=== PATIENT | female | born 2000 | race Caucasian/White ===

== ENCOUNTER 2023-09-26 20:51 | Outpatient (CLI) | payer OTHER, SELFPAY | END 2023-09-26 20:52 | disposition home or self-care (01) | LOC: AMB 10-02 02:07 | PROVIDERS: Visit Provider Family Medicine | DX: R45.851 Suicidal ideations (principal) | CPT/HCPCS: A0425; A0429 ==

== ENCOUNTER 2023-09-26 21:08 | Emergency (ER) | payer OTHER, SELFPAY ==
[2023-09-26 21:16] VITALS: BP 133/71; PULSE 69; RESP 18; TEMP 36.6; O2SAT 99; BMI 25.8
--- NOTE | 2023-09-26 21:56 | ED_ITS ---
HPI - General Adult General Chief complaint: Psychiatric Problem/Disorder <Chelsey Schneider MD - Last Filed: 09/27/23 23:51> Stated complaint: Mental Health <Chelsey Schneider MD - Last Filed: 09/27/23 23:51> Time Seen by Provider: 09/26/23 21:20 <Chelsey Schneider MD - Last Filed: 09/27/23 23:51> Source: patient <Chelsey Schneider MD - Last Filed: 09/27/23 23:51> Mode of arrival: ambulatory <Chelsey Schneider MD - Last Filed: 09/27/23 23:51> Limitations: no limitations <Chelsey Schneider MD - Last Filed: 09/27/23 23:51> History of Present Illness HPI narrative: 22-year-old female presents emergency department for evaluation of anxiety and ?feeling unsafe?. She reports that she has lot of increased stress due to upcoming senior thesis project at [employer]. She states that she had her practice run of her lecture which was Proctored by 1 of her professors. She reports that she was given some feedback. It sounds like the feedback was fairly constructive and appropriate but it caused the patient to have increased anxiety when she had already been struggling considerably. She reports that she went back to her room, started feeling unwell and made some superficial cuts on the inside of her left wrist which is a 1st time for her. She states that she called a good friend because she was feeling unsafe and the friend brought her here to the emergency department. She reports that she has been struggling with depression and anxiety since early middle school. She started seeking help for it her sophomore year of high school. She reports that she was seeing a therapist for several years and was treated with fluoxetine for 4 years. She transitioned to Lexapro 3 years ago and has been prescribed a medication ever since. She has a Nexplanon for contraception for the last 3 years. She states that she has been feeling very busy, overwhelmed and has not taken her Lexapro for at least the last 4 days and admits to sporadic use in the days preceding that as well. She reports that because of the increased anxiety, she made an appointment with 1 of the therapists at school, it did not feel like the visit was very constructive, this was about 2 weeks ago. Has not made a new counseling appointment since. Has not been involving counseling in the last year plus. Her previous counselor moved out of state. She reports that she uses marijuana probably once a month but just in social settings. Drinks 2-3 alcoholic beverages each weekend but only in social settings. No regular illicit drug use. No recent relationship, financial or family changes that are contributing to her anxiety. Reports that both of her parents take SSRI medications and have been supportive. When asked about future plans, she reports that she will be graduating in January, does not yet have a plan for a career or grad school, is hoping to work in her designated field for a couple of years and then go to grad school. She is studying physics. She denies any fevers, recent illness or trauma. No prior hospitalizations for her moods, no prior suicide attempts. Has a good [place] of friends. Requesting a note to extend timeline for her Senior thesis. Past medical history notable for depression anxiety, home meds are spironolactone and Lexapro. Social history as above. ROS notable for increased anxiety as stated above, otherwise denies physical complaints times 12 systems. Does not get her menses due to the Nexplanon, but denies . <Chelsey Schneider MD - Last Filed: 09/27/23 23:51> Related Data Home medications: Home Medications Medication Instructions Recorded Confirmed escitalopram oxalate .ROUTE 09/26/23 spironolactone .ROUTE 09/26/23 <Chelsey Schneider MD - Last Filed: 09/27/23 23:51> Allergies/adverse reactions: Allergies Allergy/AdvReac Type Severity Reaction Status Date / Time pine nut Allergy Unknown Verified 09/26/23 21:21 <Chelsey Schneider MD - Last Filed: 09/27/23 23:51> [facility] Medical History: Medical History Anxiety ?F41.9 - Anxiety disorder, unspecified (ICD-10) Depression ?F32.A - Depression, unspecified (ICD-10) <Chelsey Schneider MD - Last Filed: 09/27/23 23:51> Social History: Social History Smoking Status: Never smoker Do you use any of these nicotine containing products: None How often do you have a drink containing alcohol: never AUDIT-C Alcohol total score: 0 Non-prescribed substance use: denies use <Chelsey Schneider MD - Last Filed: 09/27/23 23:51> Exam Const: Vital Signs, click to edit/add: Vital Signs - 24 hr 09/27/23 00:43 09/27/23 03:45 Temperature 97.7 F Pulse Rate [Pulse Oximeter] 64 68 Respiratory Rate 16 16 Blood Pressure [Ri ght Upper Arm] 106/69 108/68 Pulse Oximetry 99 99 Oxygen Delivery Me thod Room Air <Chelsey Schneider MD - Last Filed: 09/27/23 23:51> Vital Signs, click to edit/add: Vital Signs - 24 hr 09/27/23 00:43 09/27/23 03:45 Temperature 97.7 F Pulse Rate [Pulse Oximeter] 64 68 Respiratory Rate 16 16 Blood Pressure [Ri ght Upper Arm] 106/69 108/68 Pulse Oximetry 99 99 Oxygen Delivery Me thod Room Air <Thelma Gonzalez MD - Last Filed: 09/27/23 04:31> Documenting provider has reviewed patient's vital signs: yes <Chelsey Schneider MD - Last Filed: 09/27/23 23:51> Common normals: no apparent distress and alert <Chelsey Schneider MD - Last Filed: 09/27/23 23:51> General appearance: cooperative, comfortable and well kempt <Chelsey Schneider MD - Last Filed: 09/27/23 23:51> Orientation/consciousness: Yes awake <Chelsey Schneider MD - Last Filed: 09/27/23 23:51> HENMT: Common normals: normocephalic and head/scalp atraumatic <Chelsey Schneider MD - Last Filed: 09/27/23 23:51> Head and scalp: normocephalic and atraumatic <Chelsey Schneider MD - Last Filed: 09/27/23 23:51> Mouth: oral and palatal mucosa normal <MD Elvis Ortega Last Filed: 09/27/23 23:51> Throat: posterior oropharynx normal <MD Elvis Ortega Last Filed: 09/27/23 23:51> Eye: Common normals: conjunctivae normal <MD Elvis Ortega Last Filed: 09/27/23 23:51> General eye: normal appearance of both eyes <MD Elvis Ortega Last Filed: 09/27/23 23:51> Conjunctiva: conjunctiva(e) normal <MD Elvis Ortega Last Filed: 09/27/23 23:51> Neck & C-Spine: Common normals: full ROM, no lymphadenopathy, no meningeal signs and thyroid normal <MD Elvis Ortega Last Filed: 09/27/23 23:51> Thyroid: thyroid normal <MD Elvis Ortega Last Filed: 09/27/23 23:51> Resp: Common normals: normal respiratory effort, no use of accessory muscles and clear to auscultation bilaterally <MD Elvis Ortega Last Filed: 09/27/23 23:51> Effort & inspection: able to speak in complete sentences <MD Elvis Ortega Last Filed: 09/27/23 23:51> Auscultation: clear to auscultation bilaterally <MD Elvis Ortega Last Filed: 09/27/23 23:51> Cardio: Common normals: regular rate, regular rhythm, S1 normal heart sound, S2 normal heart sound and no murmurs <MD Elvis Ortega Last Filed: 09/27/23 23:51> Rate: regular rate <MD Elvis Ortega Last Filed: 09/27/23 23:51> Rhythm: regular rhythm <MD Elvis Ortega Last Filed: 09/27/23 23:51> Heart sounds: S1 normal and S2 normal <MD Elvis Ortega Last Filed: 09/27/23 23:51> GI: Common normals: Normal to inspection, nondistended, normoactive bowel sounds present, soft to palpation, non-tender, no hepatosplenomegaly and no masses <Chelsey Schneider MD - Last Filed: 09/27/23 23:51> Palpation: soft and no hepatosplenomegaly <Chelsey Schneider MD - Last Filed: 09/27/23 23:51> Extremity: Common normals: normal to inspection, normal capillary refill and no pedal edema <Chelsey Schneider MD - Last Filed: 09/27/23 23:51> Neuro: Sensorium/orientation: awake and alert <Chelsey Schneider MD - Last Filed: 09/27/23 23:51> Meningeal signs: no meningeal signs <Chelsey Schneider MD - Last Filed: 09/27/23 23:51> Speech: speech normal <Chelsey Schneider MD - Last Filed: 09/27/23 23:51> Motor exam: strength 5/5 throughout, no tremor noted and no movement abnormalities noted <Chelsey Schneider MD - Last Filed: 09/27/23 23:51> Psych: Appearance: well kempt <Chelsey Schneider MD - Last Filed: 09/27/23 23:51> Attitude: engaged <Chelsey Schneider MD - Last Filed: 09/27/23 23:51> Activity/motor behavior: appropriate eye contact <Chelsey Schneider MD - Last Filed: 09/27/23 23:51> Insight: insight good <Chelsey Schneider MD - Last Filed: 09/27/23 23:51> Judgement: judgment good <Chelsey Schneider MD - Last Filed: 09/27/23 23:51> Other: Mildly anxious but insight reasoning and judgment are great. Thought process logical, well organized. Normal grooming and hygiene. <Chelsey Schneider MD - Last Filed: 09/27/23 23:51> Skin: Narrative: Very superficial vertical cuts of less than 1 cm on center of dorsal left wrist, normal tendon function and movement. <Chelsey Schneider MD - Last Filed: 09/27/23 23:51> Course Course ED Course: Underlying depression and anxiety with recent epidemic stressors. Recommended mental health assessment, basic labs to look for metabolic etiology. Will go ahead and give her Lexapro as she has missed several days of doses and also 25 mg of Vistaril. Counseled patient that sometimes it can take a few hours to get the telehealth therapy visit but this should be helpful in guiding our management. Patient was understanding and agreeable. <Chelsey Schneider MD - Last Filed: 09/27/23 23:51> Reevaluation(s) Time of Reevaluation #1: 01:43 <Chelsey Schneider MD - Last Filed: 09/27/23 23:51> Reevaluation #1: Still waiting on telehealth assessment. Inform patient of normal labs. I will be handing over care to my in coming partner. <Chelsey Schneider MD - Last Filed: 09/27/23 23:51> Vital Signs Vital signs: Initial Vital Signs Temperature 97.9 F 09/26/23 21:16 Temperature Source Temporal Artery Scan 09/26/23 21:16 Pulse Rate 69 09/26/23 21:16 Respiratory Rate 18 09/26/23 21:16 Blood Pressure 133/71 09/26/23 21:16 Blood Pressure Mean 91 09/26/23 21:16 Blood Pressure Position Supine 09/26/23 21:16 Pulse Oximetry 99 09/26/23 21:16 Oxygen Delivery Method Room Air 09/26/23 21:16 Vital Signs Temperature 97.9 F 09/26/23 21:16 Pulse Rate 69 09/26/23 21:16 Respiratory Rate 18 09/26/23 21:16 Blood Pressure 133/71 09/26/23 21:16 Pulse Oximetry 99 09/26/23 21:16 Oxygen Delivery Method Room Air 09/26/23 21:16 Temperature 97.7 F 09/27/23 03:45 Pulse Rate 68 09/27/23 03:45 Respiratory Rate 16 09/27/23 03:45 Blood Pressure 108/68 09/27/23 03:45 Pulse Oximetry 99 09/27/23 03:45 Oxygen Delivery Method Room Air 09/27/23 03:45 <Chelsey Schneider MD - Last Filed: 09/27/23 23:51> Initial Vital Signs Temperature 97.9 F 09/26/23 21:16 Temperature Source Temporal Artery Scan 09/26/23 21:16 Pulse Rate 69 09/26/23 21:16 Respiratory Rate 18 09/26/23 21:16 Blood Pressure 133/71 09/26/23 21:16 Blood Pressure Mean 91 09/26/23 21:16 Blood Pressure Position Supine 09/26/23 21:16 Pulse Oximetry 99 09/26/23 21:16 Oxygen Delivery Method Room Air 09/26/23 21:16 Vital Signs Temperature 97.9 F 09/26/23 21:16 Pulse Rate 69 09/26/23 21:16 Respiratory Rate 18 09/26/23 21:16 Blood Pressure 133/71 09/26/23 21:16 Pulse Oximetry 99 09/26/23 21:16 Oxygen Delivery Method Room Air 09/26/23 21:16 Temperature 97.7 F 09/27/23 03:45 Pulse Rate 68 09/27/23 03:45 Respiratory Rate 16 09/27/23 03:45 Blood Pressure 108/68 09/27/23 03:45 Pulse Oximetry 99 09/27/23 03:45 Oxygen Delivery Method Room Air 09/27/23 03:45 <Thelma Gonzalez MD - Last Filed: 09/27/23 04:31> Medications Administered Medications: Discontinued Medications Generic Name Dose Route Start Last Admin Trade Name Freq PRN Reason Stop Dose Admin Escitalopram Oxalate 10 mg 09/26/23 21:55 09/26/23 22:21 Escitalopram 10 Mg Tablet PO 09/26/23 21:56 10 mg ONCE ONE Administration Hydroxyzine Pamoate 25 mg 09/26/23 21:54 09/26/23 22:21 Hydroxyzine Pamoate 25 Mg Capsule PO 09/26/23 21:55 25 mg ONCE ONE Administration Hydroxyzine Pamoate 25 mg 09/27/23 04:09 09/27/23 04:25 Hydroxyzine Pamoate 25 Mg Capsule PO 09/27/23 04:10 Not Given ONCE ONE <Chelsey Schneider MD - Last Filed: 09/27/23 23:51> Discontinued Medications Generic Name Dose Route Start Last Admin Trade Name Freq PRN Reason Stop Dose Admin Escitalopram Oxalate 10 mg 09/26/23 21:55 09/26/23 22:21 Escitalopram 10 Mg Tablet PO 09/26/23 21:56 10 mg ONCE ONE Administration Hydroxyzine Pamoate 25 mg 09/26/23 21:54 09/26/23 22:21 Hydroxyzine Pamoate 25 Mg Capsule PO 09/26/23 21:55 25 mg ONCE ONE Administration Hydroxyzine Pamoate 25 mg 09/27/23 04:09 09/27/23 04:25 Hydroxyzine Pamoate 25 Mg Capsule PO 09/27/23 04:10 Not Given ONCE ONE <Thelma Gonzalez MD - Last Filed: 09/27/23 04:31> Medical Decision Making MDM Narrative Medical decision making narrative: This patient was signed out to me by Dr. Schneider. Be has continued to rest comfortably during her night here. DEC was delayed but has now been completed. I did speak with an the counselor. At this time and feels be is safe to go home. Does recommend both joining the senior year stressed management group at [facility] as well as has made an appointment for patient to see a therapist this TuesdaySeptember 30. Assessment/plan 1. Depression/anxiety-at this time be will be discharged home after having seen our tele mental health. Recommend a shins as above for both 1 on 1 therapy as well as a group setting. I spoke with be about this at a encourage both. She notes that she has no problem with the ability to see the counselor on Tuesday but she is worried about a group situation. I have encouraged her to follow through upon this as this may be beneficial to understand that many of the high level achieving student at [employer] face many of the same challenges in stressors. I am hopeful that she will attend. In addition she did seem to have improvement and was able to sleep a period of time with hydroxyzine 25 mg ordered by my predecessor. I will send 1 tablet home with be to use as needed for sleep. Further prescriptions will need to go through primary MD. 2. Disposition-home at this time. Home is [facility] [place]. She feels safe and comfortable going back. There is a safety plan that is a pending at that we will have her sign. All questions were answered. Patient did wonder about a note so that she can take a few days off from school. At this time I encouraged her to actually speak with her clinical project coordinator and work with her counselor in order to set an appropriate schedule up. I do not think that here in the emergency room we are in a position where days off from school or extensions of her school project are something that we should be involved in. Instead, I have provided a note for be describing her visit overnight from September 26 into the and need for discussion regarding work life balance. She may give this to the Chris or her therapist so that they can come up with a plan that would fit be is needs for school as well as self-care. Return to the emergency room for worsening symptoms. <Thelma Gonzalez MD - Last Filed: 09/27/23 04:31> Medical Records Medical records reviewed: Yes I reviewed the patient's medical records <Thelma Gonzalez MD - Last Filed: 09/27/23 04:31> Lab Data Lab results reviewed: Yes I reviewed the patient's lab results <Chelsey Schneider MD - Last Filed: 09/27/23 23:51> Lab results narrative: Labs reassuring, as expected <Chelsey Schneider MD - Last Filed: 09/27/23 23:51> Labs: Lab Results 09/26/23 09/26/23 Range/Units 22:00 22:18 WBC 9.14 (4.50-11.00) K/uL RBC 4.38 (4.00-5.20) m/uL Hgb 12.5 (12.0-16.0) gm/dL Hct 38.7 (33.0-51.0) % MCV 88 (80-100) fL MCH 29 (26-34) pg MCHC 32 (32-36) gm/dL RDW Coeff of Bella 13.0 (11.5-15.5) % Plt Count 319 (140-440) K/uL Neut % (Auto) 74.6 H (42.0-72.0) % Lymph % (Auto) 17.9 L (20-44) % [place] % (Auto) 5.7 (0.0-11.0) % Eos % (Auto) 0.7 (0.0-7.0) % Baso % (Auto) 0.2 (0.0-3.0) % Neut # (Auto) 6.80 (1.7-7.0) K/uL Lymph # (Auto) 1.60 (0.90-2.90) K/uL [place] # (Auto) 0.50 (0.00-0.90) K/UL Eos # (Auto) 0.06 (0.00-0.50) K/uL Baso # (Auto) 0.02 (0.00-0.30) K/uL Abs Immat Gran (auto) 0.08 (0.00-0.30) K/uL Imm/Tot Granulo (auto) 0.9 % Sodium 142 (135-149) mmol/L Potassium 3.4 L (3.6-5.1) mmol/L Chloride 107 (96-114) mmol/L Carbon Dioxide 24 (20-32) mmol/L Anion Gap 11 (7-15) mEq/L BUN 13 (5-24) mg/dL Creatinine 0.6 (0.5-1.5) mg/dL Estimated Creat Clear 106.54 Estimated GFR 131 ml/min Glucose 119 H (60-115) mg/dL Calcium 9.6 (8.4-10.6) mg/dL TSH 1.070 (0.270-4.200) uIU/mL HCG, Quant < 2.39 mIU/mL Salicylates < 1.0 L (1.0-10) mg/dL Urine Opiates Screen Negative (Negative) Ur Oxycodone Screen Negative (Negative) Urine Methadone Screen Negative (Negative) Acetaminophen < 10.0 L (10.0-30.0) ug/mL Ur Barbiturates Screen Negative (Negative) U Tricyclic Antidepress Negative (Negative) Ur Phencyclidine Scrn Negative (Negative) Ur Amphetamines Screen Negative (Negative) U Methamphetamines Scrn Negative (Negative) U Benzodiazepines Scrn Negative (Negative) Urine Cocaine Screen Negative (Negative) U Marijuana (THC) Screen Negative (Negative) Ur Drug Screen Comment See Note Ethyl Alcohol < 0.01 L (0.01-0.03) % <Chelsey Schneider MD - Last Filed: 09/27/23 23:51> Lab Results 09/26/23 09/26/23 Range/Units 22:00 22:18 WBC 9.14 (4.50-11.00) K/uL RBC 4.38 (4.00-5.20) m/uL Hgb 12.5 (12.0-16.0) gm/dL Hct 38.7 (33.0-51.0) % MCV 88 (80-100) fL MCH 29 (26-34) pg MCHC 32 (32-36) gm/dL RDW Coeff of Bella 13.0 (11.5-15.5) % Plt Count 319 (140-440) K/uL Neut % (Auto) 74.6 H (42.0-72.0) % Lymph % (Auto) 17.9 L (20-44) % [place] % (Auto) 5.7 (0.0-11.0) % Eos % (Auto) 0.7 (0.0-7.0) % Baso % (Auto) 0.2 (0.0-3.0) % Neut # (Auto) 6.80 (1.7-7.0) K/uL Lymph # (Auto) 1.60 (0.90-2.90) K/uL [place] # (Auto) 0.50 (0.00-0.90) K/UL Eos # (Auto) 0.06 (0.00-0.50) K/uL Baso # (Auto) 0.02 (0.00-0.30) K/uL Abs Immat Gran (auto) 0.08 (0.00-0.30) K/uL Imm/Tot Granulo (auto) 0.9 % Sodium 142 (135-149) mmol/L Potassium 3.4 L (3.6-5.1) mmol/L Chloride 107 (96-114) mmol/L Carbon Dioxide 24 (20-32) mmol/L Anion Gap 11 (7-15) mEq/L BUN 13 (5-24) mg/dL Creatinine 0.6 (0.5-1.5) mg/dL Estimated Creat Clear 106.54 Estimated GFR 131 ml/min Glucose 119 H (60-115) mg/dL Calcium 9.6 (8.4-10.6) mg/dL TSH 1.070 (0.270-4.200) uIU/mL HCG, Quant < 2.39 mIU/mL Salicylates < 1.0 L (1.0-10) mg/dL Urine Opiates Screen Negative (Negative) Ur Oxycodone Screen Negative (Negative) Urine Methadone Screen Negative (Negative) Acetaminophen < 10.0 L (10.0-30.0) ug/mL Ur Barbiturates Screen Negative (Negative) U Tricyclic Antidepress Negative (Negative) Ur Phencyclidine Scrn Negative (Negative) Ur Amphetamines Screen Negative (Negative) U Methamphetamines Scrn Negative (Negative) U Benzodiazepines Scrn Negative (Negative) Urine Cocaine Screen Negative (Negative) U Marijuana (THC) Screen Negative (Negative) Ur Drug Screen Comment See Note Ethyl Alcohol < 0.01 L (0.01-0.03) % <Thelma Gonzalez MD - Last Filed: 09/27/23 04:31> Discharge Plan Discharge Clinical Impression: Acute anxiety Depression Qualifiers: Depression Type: unspecified Qualified Code(s): F32.A - Depression, unspecified <Chelsye Schneider MD - Last Filed: 09/27/23 23:51> Patient Disposition: Home, Self-Care <Chelsey Schneider MD - Last Filed: 09/27/23 23:51> Condition: Improved <Chelsey Schneider MD - Last Filed: 09/27/23 23:51> Additional Instructions: 1. The mental health hyperbaric welder diver has suggested a therapy appointment this Tuesday with a counselor. In addition [facility] offers a senior year stress management group that is highly recommended for you. 2. Please read and follow the safety plan and should you be worried about self- harm or suicidal thoughts please return to the emergency room. 3. An additional dose of a medication called hydroxyzine will be sent home with you to help with sleep. 4. Return as needed. Also please continue Lexapro as directed. Follow-up with your clinical project coordinator as well as therapist if you need to have a days off of school or additional time for school projects . <Chelsey Schneider MD - Last Filed: 09/27/23 23:51> Prescriptions: No Action escitalopram oxalate [Lexapro] .ROUTE spironolactone .ROUTE <Chelsey Schneider MD - Last Filed: 09/27/23 23:51> Follow Up/Referrals: Provider,Not a Local [Primary Care Provider] - <Chelsey Schneider MD - Last Filed: 09/27/23 23:51> Stand Alone Forms: MyHealth Info Instructions <Chelsey Schneider MD - Last Filed: 09/27/23 23:51>
[2023-09-26] MEDS: ESCITALOPRAM 10 MG TABLET PO (22:21)
[2023-09-26] MEDS: hydrOXYzine pamoate 25 MG CAPSULE PO (22:21)
[2023-09-26 22:26] LABS: Amphetamine Screen Urine Negative (Negative); Barbiturate Screen Urine Negative (Negative); Benzodiazepines Screen Urine Negative (Negative); Cannabinoid Screen Urine Negative (Negative); Cocaine Screen Urine Negative (Negative); Methadone Screen Urine Negative (Negative); Methamphetamines Screen Urine Negative (Negative); Opiate Screen Urine Negative (Negative); Oxycodone Screen Urine Negative (Negative); Phencyclidine Screen Urine Negative (Negative); Tricyclic Antidepressant Urine Negative (Negative)
[2023-09-26 22:30] LABS: Basophils Absolute Auto 0.02 K/uL (0.00-0.30); Basophils Percent Auto 0.2 % (0.0-3.0); Eosinophils Absolute Auto 0.06 K/uL (0.00-0.50); Eosinophils Percent Auto 0.7 % (0.0-7.0); Hematocrit 38.7 % (33.0-51.0); Hemoglobin* 12.5 gm/dL (12.0-16.0); Immature Granulocytes Abs Auto 0.08 K/uL (0.00-0.30); Immature Granulocytes Pct Auto 0.9 %; Lymphocytes Percent Auto 17.9 % (20-44); Mean Corpuscular HGB Conc 32 gm/dL (32-36); Mean Corpuscular Hemoglobin 29 pg (26-34); Mean Corpuscular Volume 88 fL (80-100); Monocytes Percent Auto 5.7 % (0.0-11.0); Neutrophils Percent Auto 74.6 % (42.0-72.0); Platelet Count* 319 K/uL (140-440); Red Blood Count 4.38 m/uL (4.00-5.20); White Blood Count* 9.14 K/uL (4.50-11.00)
[2023-09-26 22:40] LABS: Chloride* 107 mmol/L (96-114); Potassium* 3.4 mmol/L (3.6-5.1); Sodium* 142 mmol/L (135-149)
[2023-09-26 22:42] LABS: Creatinine* 0.6 mg/dL (0.5-1.5); Est. Creatinine Clearance* 106.54; Estimated Glomerular Filt Rate 131 ml/min
[2023-09-26 22:43] LABS: Anion Gap 11 mEq/L (7-15); Blood Urea Nitrogen* 13 mg/dL (5-24); Carbon Dioxide* 24 mmol/L (20-32)
[2023-09-26 22:44] LABS: Calcium* 9.6 mg/dL (8.4-10.6); Glucose* 119 mg/dL (60-115)
[2023-09-26 22:51] LABS: Acetaminophen* < 10.0 ug/mL (10.0-30.0); Ethanol* < 0.01 % (0.01-0.03); Salicylate* < 1.0 mg/dL (1.0-10)
[2023-09-26 22:59] LABS: Slide Review Reflex No
[2023-09-26 23:16] LABS: HCG Quantitative* < 2.39 mIU/mL
[2023-09-27 00:43] VITALS: BP 106/69; PULSE 64; RESP 16; O2SAT 99
--- NOTE | 2023-09-27 02:47 | PC.NURSE ---
speaking with LUCIANA
[2023-09-27 03:45] VITALS: BP 108/68; PULSE 68; RESP 16; TEMP 36.5; O2SAT 99
--- NOTE | 2023-09-27 04:26 | PC.NURSE ---
medication sent home with patient per protocol
--- NOTE | 2023-09-27 04:26 | PC.NURSE ---
patient DC to home, public safety contacted for ride back to campus. patients belonging returned to patient. DC instructions reviewed with patient with out any further questions. patient states feeling safe with this plan, copy of safety contract given to patient.
== END 2023-09-27 04:27 | disposition home or self-care (01) ==
PROVIDERS: Family Medicine; Emergency Provider Family Medicine
DX: F32.A Depression, unspecified (principal); F41.8 Other specified anxiety disorders
CPT/HCPCS: 36415; 80048; 80143; 80179; 80306; 82077; 84443; 84702; 85025; 99283; 99284; A9270